=== PATIENT | male | born 1940 | race Caucasian/White ===

== ENCOUNTER 2017-04-08 10:38 | Outpatient (CLI) | payer MEDICARE ==
--- NOTE | 2017-04-08 19:48 | ULT ---
ABDOMINAL AORTA ULTRASOUND 04/08/17 A screening exam was performed of the abdominal aorta in this patient who has a history of smoking. There us no sign of an abdominal aortic aneurysm. The proximal aorta measured up to 2 cm in width. Th e mid aorta measured up to 2.3 cm. The distal measured up to 1.9 cm. IMPRESSION: Normal sized aorta with no evidence of aneurysm. POS: HOME
== END 2017-04-08 10:39 | disposition home or self-care (01) ==
LOC: BURULT 10:38
PROVIDERS: ATTEND Family Medicine
DX: Z87.891 Personal history of nicotine dependence (principal)
CPT/HCPCS: 76775